=== PATIENT | female | born 1995 | race Caucasian/White ===

== ENCOUNTER 2018-04-21 12:24 | Emergency (ER) | payer SELFPAY ==
--- NOTE | 2018-04-21 12:45 | ER Document Report ---
HPI - HPI Pain Level: 3 - CONSTITUTIONAL Constitutional: DENIES: Fever, Chills - EENT EENT: REPORTS: Ear Pain - right ear Past Medical History - Social History Smoking Status: Current Every Day Smoker Chew tobacco use (# tins/day): No Frequency of alcohol use: None Drug Abuse: None Patient has suicidal ideation: No Patient has homicidal ideation: No Renal/ Medical History: Denies: Hx Peritoneal Dialysis Vertical Provider Document - INFECTION CONTROL TRAVEL OUTSIDE OF THE [place] IN LAST 30 DAYS: No Course - Vital Signs Vital signs: Temp Pulse Resp BP Pulse Ox 98.3 F 89 18 129/72 H 98 04/21/18 12:36 04/21/18 12:36 04/21/18 12:36 04/21/18 12:36 04/21/18 12:36
--- NOTE | 2018-04-21 12:59 | ER Document Report ---
ED Medical Screen (RME) - General Chief Complaint: Ear Pain Stated Complaint: DIZZY, NAUSEA, LIGHTHEADED Time Seen by Provider: 04/21/18 12:45 Mode of Arrival: Ambulatory Notes: 22-year-old female complaining of intermittent vertigo, dizziness and nausea for several months. No history of neurological problems or headaches. No primary care doctor. Sometimes is associated with right ear pain. No recent upper respiratory infection. No fever. TRAVEL OUTSIDE OF THE [place] IN LAST 30 DAYS: No - Related Data Allergies/Adverse Reactions: Penicillins Allergy (Verified 04/21/18 12:32) Past Medical History - Social History Chew tobacco use (# tins/day): No Frequency of alcohol use: None Drug Abuse: None Renal/ Medical History: Denies: Hx Peritoneal Dialysis Physical Exam - Vital signs Vitals: Temp Pulse Resp BP Pulse Ox 98.3 F 89 18 129/72 H 98 04/21/18 12:36 04/21/18 12:36 04/21/18 12:36 04/21/18 12:36 04/21/18 12:36 Course - Vital Signs Vital signs: Temp Pulse Resp BP Pulse Ox 98.3 F 89 18 129/72 H 98 04/21/18 12:36 04/21/18 12:36 04/21/18 12:36 04/21/18 12:36 04/21/18 12:36
[2018-04-21] MEDS ORDERED: MECLIZINE HCL 25 MG TABLET PO ONE (13:14)
--- NOTE | 2018-04-21 13:19 | ER Document Report ---
ED General - General Chief Complaint: Ear Pain Stated Complaint: DIZZY, NAUSEA, LIGHTHEADED Time Seen by Provider: 04/21/18 12:45 Mode of Arrival: Ambulatory TRAVEL OUTSIDE OF THE [place] IN LAST 30 DAYS: No - HPI Notes: Patient is a 22-year-old female with no significant past medical history who presents to the ED complaining of right ear pain, popping, and clicking intermittently over the last 2-3 months, but more acutely since last night. Patient states that she feels like she has to pop her ear, and the pain will occasionally radiate down towards the neck. Patient states that when she has this type of pain she does have associated dizziness that can be worse with head movements. Patient states that she is otherwise felt some lightheadedness when she arises from a lying or seated position. Patient states that her brief episodes of lightheadedness and dizziness symptoms then completely resolve. Patient states that the pain is intermittent otherwise, and has tried some over- the-counter meds with minimal relief. She has not had any other recent illness. Patient states that she is eating and drinking without any difficulties. She is urinating normally and having normal bowel movements. She is able to ambulate without any difficulties. She is not on any blood thinners. No other significant cardiopulmonary medical history. No unintentional weight loss. Denies any headache, fever, head injury, neck pain, changes in vision/speech/mentation/hearing, URI, sore throat, chest pain, palpitations, syncope, cough, shortness of breath, wheeze, dyspnea, abdominal pain, nausea/vomiting/diarrhea, urinary retention, dysuria, hematuria, loss of control of bowel or bladder, numbness/tingling, muscle paralysis/weakness, or rash. - Related Data Allergies/Adverse Reactions: Penicillins Allergy (Verified 04/21/18 12:32) Past Medical History - Social History Smoking Status: Current Every Day Smoker Chew tobacco use (# tins/day): No Frequency of alcohol use: None Drug Abuse: None Family History: Reviewed & Not Pertinent Patient has suicidal ideation: No Patient has homicidal ideation: No Renal/ Medical History: Denies: Hx Peritoneal Dialysis Review of Systems - Review of Systems -: Yes All other systems reviewed and negative Physical Exam - Vital signs Vitals: Temp Pulse Resp BP Pulse Ox 98.3 F 89 18 129/72 H 98 04/21/18 12:36 04/21/18 12:36 04/21/18 12:36 04/21/18 12:36 04/21/18 12:36 - Notes Notes: PHYSICAL EXAMINATION: GENERAL: Well-appearing, well-nourished and in no acute distress. A&Ox4. Answers questions appropriately. HEAD: Atraumatic, normocephalic. Non-tender. EYES: Pupils equal round and reactive to light, extraocular movements intact, sclera anicteric, conjunctiva are normal. No nystagmus. vis burt intact. ENT: EAC clear b/l. TM's intact b/l without erythema, fluid, or perforation. Non-tender to palp rt EAC/tragus. No swelling. No mastoid tenderness. Nares patent and without discharge. oropharynx clear without exudates. No tonsilar hypertrophy or erythema. Moist mucous membranes. No sinus tenderness. NECK: Normal range of motion, supple without lymphadenopathy. No rigidity/ meningismus. No midline tenderness. No bruits LUNGS: Breath sounds clear to auscultation bilaterally and equal. No wheezes rales or rhonchi. HEART: Regular rate and rhythm without murmurs, rubs, gallops. ABDOMEN: Soft, nontender, nondistended abdomen. No guarding, no rebound. Normal bowel sounds present. No CVA tenderness bilaterally. Musculoskeletal: Ext b/l: FROM to passive/active. Strength 5+/5. No deficits noted. No bony tenderness of extremities. Extremities: No cyanosis, clubbing, or edema b/l. Peripheral pulses 2+. Capillary refill less than 2 seconds. NEUROLOGICAL: NIH 0. GCS 15. Cranial nerves grossly intact. Normal speech, normal gait. Normal sensory, motor exams. Reflexes 2+ b/l. JULIO's negative. Pronator drift negative. Heel/lopez, finger/nose wnl. Rhomberg neg. PSYCH: Normal mood, normal affect. SKIN: Warm, Dry, normal turgor, no rashes or lesions noted. Course - Re-evaluation Re-evalutation: 04/21/18 14:40 Patient is an afebrile, well-hydrated, 22-year-old female who presents to the ED with right otalgia, suspect eustachian tube dysfunction. Vitals are acceptable without any significant tachycardia, tachypnea, or hypoxia. PE is otherwise unremarkable for any focal neurological deficits. NIH 0, GCS 15, cranial nerves grossly intact. CBC, CMP, TSH, hCG, urinalysis were unremarkable for any acute pathology. Orthostatics were unremarkable. Patient is currently asymptomatic at this time and meclizine was also given. Based upon patient's history, patient does get some brief dizziness with head movements as well as rising from a seated or lying position and is not there constantly. Symptoms most spontaneously then resolved. This is been going on for 2-3 months, but is only associated when she has her otalgia. I did review CT scan of the head with the patient who declined scan at this time. Based upon his history and no focal neurological deficits, I have low suspicion for any acute glaucoma, temporal arteritis, meningitis, intracranial hemorrhage, ischemic stroke, mastoiditis, severe dehydration, or fracture at this time. Patient is aware that this condition can change from initial presentation and that she needs to monitor symptoms closely for any acute changes. No other labs or imaging warranted at this time based on H&P. I will send her home with prescription for meclizine. Recheck with your PCM in 3-5 days. Schedule an appoint with ENT as well. Return to the ED with any worsening/concerning symptoms otherwise as reviewed in discharge. Patient is in agreement. - Vital Signs Vital signs: Temp Pulse Resp BP Pulse Ox 98.3 F 18 L 18 120/75 100 04/21/18 12:36 04/21/18 13:29 04/21/18 13:24 04/21/18 13:29 04/21/18 13:24 - Laboratory Result Diagrams: 04/21/18 13:18 04/21/18 13:18 Discharge - Discharge Clinical Impression: Otalgia, right ear Eustachian tube dysfunction Qualifiers: Laterality: right Qualified Code(s): H69.81 - Other specified disorders of Eustachian tube, right ear Condition: Stable Disposition: HOME, SELF-CARE Additional Instructions: Maintain adequate fluid intake Take meds as directed tylenol/ibuprofen as needed Keep ears clean, avoid q-tips Humidified air may help Wash your hands regularly Wear a mask when coughing F/u: with your PCM in 3-5 days for a recheck Consider consult with ENT (ears, nose, throat provider) Return to the ED with any worsening symptoms and/or development of fever, headache, changes in behavior/mentation/vision/speech, chest pain, palpitations , syncope, shortness of breath, trouble breathing, abdominal pain, n/v/d, blood in stool/urine, loss of control of bowel/bladder, urinary retention, muscle weakness/paralysis, saddle anesthesia, numbness/tingling, or other worsening symptoms that are concerning to you. Prescriptions: Meclizine HCl 25 mg PO TID PRN #15 tablet PRN Reason: Forms: Smoking Cessation Education Referrals: VIJAY WATTS DO [ASSOCIATE] - Follow up as needed
[2018-04-21 13:31] VITALS: BP 120/75
[2018-04-21 13:51] LABS: ABSOLUTE EOSINOPHILS # (AUTO) 0.1 10^3/uL (0.0-0.6); ABSOLUTE LYMPHOCYTES (AUTO) 2.4 10^3/uL (0.5-4.7); ABSOLUTE MONOCYTES (AUTO) 0.5 10^3/uL (0.1-1.4); ABSOLUTE NEUT (AUTO) 5.2 10^3/uL (1.7-8.2); BASOPHILS % (AUTO) 0.4 % (0-2); EOSINOPHILS % (AUTO) 0.8 % (0-6); HEMATOCRIT 44.7 % (36.0-47.0); HEMOGLOBIN 15.5 g/dL (12.0-15.5); LYMPHOCYTES % (AUTO) 29.4 % (13-45); MEAN CORPUSCULAR HEMOGLOBIN 29.4 pg (27.0-33.4); MEAN CORPUSCULAR HGB CONC 34.7 g/dL (32.0-36.0); MEAN CORPUSCULAR VOLUME 85 fl (80-97); MONOCYTES % (AUTO) 5.7 % (3-13); PLATELET COUNT 307 10^3/uL (150-450); RED BLOOD COUNT 5.27 10^6/uL (3.72-5.28); RED CELL DISTRIBUTION WIDTH 12.8 % (11.5-14.0); SEGMENTED NEUTROPHILS % (AUTO) 63.7 % (42-78); TOTAL CELLS COUNTED % (AUTO) 100 %; WHITE BLOOD COUNT 8.2 10^3/uL (4.0-10.5)
[2018-04-21 13:59] LABS: APPEARANCE,URINE CLEAR; BILIRUBIN,URINE NEGATIVE (NEGATIVE); COLOR,URINE YELLOW; GLUCOSE, URINE NEGATIVE (NEGATIVE); KETONES,URINE NEGATIVE (NEGATIVE); LEUKOCYTE ESTERASE,URINE NEGATIVE (NEGATIVE); NITRITE,URINE NEGATIVE (NEGATIVE); PROTEIN,URINE NEGATIVE (NEGATIVE); URINE SPECIFIC GRAVITY 1.014; UROBILINOGEN,URINE NEGATIVE mg/dL (<2.0)
[2018-04-21 14:08] LABS: ALANINE AMINOTRANSFERASE 24 U/L (9-52); ALBUMIN 4.7 g/dL (3.5-5.0); ALKALINE PHOSPHATASE 78 U/L (38-126); ANION GAP 13 (5-19); ASPARTATE AMINO TRANSFERASE 22 U/L (14-36); BILIRUBIN,DIRECT 0.2 mg/dL (0.0-0.4); BILIRUBIN,TOTAL 0.4 mg/dL (0.2-1.3); BLOOD UREA NITROGEN 8 mg/dL (7-20); CARBON DIOXIDE 28 mmol/L (22-30); CHLORIDE 102 mmol/L (98-107); GLUCOSE 83 mg/dL (75-110); POTASSIUM 4.3 mmol/L (3.6-5.0); SODIUM 142.5 mmol/L (137-145); TOTAL PROTEIN 7.7 g/dL (6.3-8.2)
--- NOTE | 2018-04-21 22:33 | EKG REPORT ---
SEVERITY:- NORMAL ECG - SINUS RHYTHM : Confirmed by: Keisha Clark 21-Apr-2018 22:32:54
== END 2018-04-21 14:50 | disposition home or self-care (01) ==
LOC: ER 12:24
DX: H69.91 Unspecified Eustachian tube disorder, right ear (principal); H92.01 Otalgia, right ear; R42 Dizziness and giddiness; F17.200 Nicotine dependence, unspecified, uncomplicated; Z88.0 Allergy status to penicillin
CPT/HCPCS: 36415; 80053; 81001; 84443; 84703; 85025; 93005; 93010; 99283